=== PATIENT | male | born 1995 | race Caucasian/White ===

== ENCOUNTER 2017-02-24 00:51 | Emergency (ER) | payer BC, OTHER ==
[~2017-02-24] VITALS: Ht 180.3 cm; Wt 80.0 kg
[~2017-02-24 00:51] MED LIST: CETI10CH PO; GUMMY VITAMIN PO
[2017-02-24 01:00] VITALS: TEMP 36.7; Ht 180.3 cm; Wt 80.0 kg
[2017-02-24] MEDS ORDERED: IBUPROFEN 600 MG TAB PO STA (01:07)
[2017-02-24] MEDS ORDERED: MULT-506 PO (01:28)
[2017-02-24 02:00] VITALS: BP 100/72; PULSE 68; O2SAT 99
--- NOTE | 2017-02-24 02:16 | EMERGENCY ROOM VISIT NOTE ---
ED Visit Note First contact with patient: 01:05 CHIEF COMPLAINT: Hand injury HISTORY OF PRESENT ILLNESS: This 21 yo patient presented to the emergency department with family after they injured the right hand after punching a wall today. The patient rates the pain as throbbing and 5/10. The patient denies any numbness or tingling. The patient does not have injuries to the wrist. The patient has not had a previous fracture to this hand. Patient follows with Dr. Radford. REVIEW OF SYSTEMS: A 6 system review of systems was completed with positives and pertinent negatives in the HPI. ALLERGIES: None MEDICATIONS: None PMH: Orthopedic injuries SOCIAL HISTORY: No drug use PHYSICAL EXAM: Vital Signs: Reviewed Nurse's notes, vital signs stable. GENERAL : Pleasant male, in no acute distress, but appears to be in pain, well-developed , well-nourished. MUSCULOSKELETAL: There is deformity of the right hand. There is tenderness in the metacarpal. There is no thenar or hypothenar eminence atrophy. Normal thumb opposition to all fingers. Quality Checker strength 4/5. There is no laceration. Capillary refill less than 2 seconds. No tenderness of the fingers or wrist. Full range of motion of the wrist. No snuff box tenderness. Radial pulse 2+. NEURO: Alert and oriented to person, place, and time. Normal sensation to light and sharp touch. EMERGENCY DEPARTMENT COURSE: I examined the patient. An x-ray of the right hand was reviewed by myself and attending and shows angulated boxer's fracture. Patient was placed in a ulnar gutter Ortho-Glass splint and neurovascular status was rechecked after placement and is intact. Mother states that she is good friends with Dr. Radford and will contact them in the morning. She states she will follow up with them on Friday for definitive care for that hand fracture. They're advised to return to the ER immediately for severe pain, numbness, tingling, worsening signs or symptoms or as needed. The patient was discharged home in good condition. DIAGNOSIS: Right boxer's fracture hand DISCHARGE INSTRUCTIONS: As below case reviewed with my Attending Current/Historical Medications Scheduled Multivitamin (Multivitamin), 1 TAB PO DAILY Allergies Coded Allergies: No Known Allergies (Unverified , 02/24/17) Vital Signs Date Time Temp Pulse Resp B/P (MAP) Pulse Ox O2 Delivery O2 Flow Rate FiO2 02/24/17 02:00 68 18 100/72 99 02/24/17 01:00 36.7 67 18 100/64 100 Room Air Medications Administered Medications (Trade) Dose Ordered Sig/Lee Route Start Time Stop Time Status Last Admin Dose Admin Ibuprofen (Motrin Tab) 600 mg NOW STAT PO 02/24/17 01:07 02/24/17 01:09 DC 02/24/17 01:13 600 MG Departure Information Impression Primary Impression: Hand fracture, right Dispostion Home / Self-Care Condition GOOD Referrals Rk Christie, DO Forms HOME CARE DOCUMENTATION FORM, IMPORTANT VISIT INFORMATION Patient Instructions My [facility], ED Fx Hand Closed Additional Instructions Ibuprofen(Motrin, Advil) may be used for fever or pain. Use 600mg every six hours as needed. Take with food. Avoid using more than 2400mg in a 24 hour period. Do not use 2400mg per day for more than three consecutive days without physician direction. Prolonged inappropriate use can lead to stomach upset or ulcers. This medication can be taken if you need to drive, work, or perform activities which may be dangerous when taking narcotic pain medication. (AND/OR) Acetaminophen(Tylenol) may be used for fever or pain. Use 1000mg every six hours as needed. Avoid using more than 3000mg in a 24 hour period. This medication can be taken if you need to drive, work, or perform activities which may be dangerous when taking narcotic pain medication. Ice compresses for 20 minutes at a time four times daily for 2-3 days. Rest and elevate your injury. Do not get the splint wet. If your splint feels excessively tight, you have worsening pain, develop numbness or tingling, or your digits appear blue, loosen the radhames wrap. Then reapply the radhames wrap gently without removing the splint. If your symptoms are not quickly relieved return to the ER for re- evaluation. Continue current medications. Return to the ER immediately for any numbness, tingling, severe pain, extreme swelling in the extremity or as needed. Call Orthopedics tomorrow to arrange follow up for your injury.
--- NOTE | 2017-02-24 06:38 | DIAGNOSTIC IMAGING REPORT ---
RIGHT HAND MIN 3 VIEWS ROUTINE HISTORY: 21 years-old Male punched wall, 5th pain Right acute right hand pain status post punching a wall. Initial exam. COMPARISON: Right wrist radiographs 01/15/2013. TECHNIQUE: 3 views of the right hand FINDINGS: There is an acute mildly comminuted fracture of the distal diaphyseal fifth metacarpal with apex dorsal angulation of 80 degrees. Moderate associated soft tissue swelling. Sclerosis corresponding with remote fracture of the triquetrum is seen. No additional acute displaced fracture or dislocation. IMPRESSION: Acute mildly comminuted angulated fracture of the distal diaphyseal fifth metacarpal. The above report was generated using voice recognition software. It may contain grammatical, syntax or spelling errors. Electronically signed by: Tod Atkins M.D. 02/24/2017 6:37 AM Dictated Date/Time: 02/24/2017 6:35 AM
[2017-02-26] MEDS ORDERED: ACET-1256 PO (11:41)
[2017-02-27] MEDS ORDERED: HYDR-5688 PO (12:07)
== END 2017-02-24 02:00 | disposition home or self-care (01) ==
LOC: C.EDB 00:52 → C.EDC 02:00
DX: S62.396A Other fracture of fifth metacarpal bone, right hand, initial encounter for closed fracture (principal); W22.09XA Striking against other stationary object, initial encounter; Y93.89 Activity, other specified; Y99.8 Other external cause status

== ENCOUNTER → 2017-02-27 | Day surgery (SDC) | payer BC ==
[2017-02-26 11:42] VITALS: Ht 180.3 cm; Wt 79.5 kg
[~2017-02-27] VITALS: Ht 180.3 cm; Wt 79.5 kg
[~2017-02-27] MED LIST changes: +ACET-1256 PO; +ATROPINE SULFATE 0.1 MG/ML 5ML SYR IV PRN; +BUPIVACAINE 0.5 % 5 MG/1 ML MPF 30ML VIAL ONE; +CEFAZOLIN 2000 MG/60 ML D5W IV SCH; -CETI10CH PO; +DEXAMETHASONE SOD INJ 4 MG/ML VIAL ONE; +EpHEDrine SULFATE INJ 50 MG/ML AMP IV PRN; +FENTANYL CITRATE INJ 50 MCG/1 ML 2 ML VIAL IV PRN; +FENTANYL CITRATE INJ 50 MCG/1 ML 2 ML VIAL ONE; -GUMMY VITAMIN PO; +HYDR-5688 PO; +HYDROCODONE/ACETAMOPHEN 5/325MG TAB PO PRN; +KETOROLAC TROMETHAMINE 30 MG/ML VIAL ONE; +LACTATED RINGER'S 1000ML 1,000 ML IV SCH; +LIDOCAINE HCL 1% 20 ML VIAL ONE; +LIDOCAINE HCL 2% 2 ML VIAL (20MG/ML) ONE; +MIDAZOLAM HCL 1 MG/ML 2ML VIAL ONE; +MULT-506 PO; +ONDANSETRON INJ 2 MG/ML 2 ML VIAL IV PRN; +ONDANSETRON INJ 2 MG/ML 2 ML VIAL ONE; +PROPOFOL IV EMULSION 10 MG/ML 20 ML VIAL IV ONE; +SODIUM CHLORIDE 0.9% 1000ML 1,000 ML IV SCH
--- NOTE | 2017-02-27 08:01 | History & Physical Bridge - [place] ---
H&P Re-Evaluation Bridge Note: I have examined the patient, reviewed the History & Physical and in the interval since the performance of the History & Physical I have noted the following changes of clinical significance: No changes noted
--- NOTE | 2017-02-27 12:08 | Discharge Instructions-SurgCtr ---
Discharge Instructions Date of Service Feb 27, 2017. Visit Reason for Visit: Closed Fx Of Neck Of 5TH Metacarpal Bone Discharge Discharge Diagnosis / Problem: SAME ABOVE Discharge Goals Goal(s): Decrease discomfort, Improve function Activity Recommendations Activity Limitations: as noted below Exercise/Sports Limitations: until after follow-up appointment Driving or Machine Use: resume 1 day after discharge Anesthesia . Post Anesthesia Instructions: If you have had General Anesthesia or IV Sedation: * Do not drive today. * Resume driving when surgeon permits. * Do not make important decisions or sign legal documents today. * Call surgeon for: 1. Temperature elevations greater than 101 degrees F. 2. Uncontrollable pain. 3. Excessive bleeding. 4. Persistent nausea and vomiting. 5. Medication intolerance (nausea, vomiting or rash). * For nausea and vomiting use only clear liquids such as: tea, soda, bouillon until nausea subsides, then gradually increase diet as tolerated. * If you have any concerns or questions, call your surgeon's office. If physician is unavailable and it is an emergency, call 911 or go to the nearest emergency room. . Instructions / Follow-Up Instructions / Follow-Up MEDICATIONS: * Resume previous medications unless instructed otherwise by your surgeon. * Always take pain medication on a full stomach or with food to avoid upset stomach. * Do not drink alcohol or drive while taking narcotics. * Ibuprofen or Tylenol may be taken if narcotic not needed. SPECIAL CARE INSTRUCTIONS: __ None _X_ Keep extremity elevated and iced x 48 hours; apply ice 20-30 minutes 8-10 times/day. May remove at night. __ Sling __24 hrs/day __ Remove at night __ Shoulder Immobilizer __ 24 hrs/day __ Remove at night _X_ Dressing _X_ Maintain until seen in office, may shower with plastic over site __ Remove dressings in 24-48 hours and then may shower __ Cover incisions with band-aids after showering __ Do not remove steri-strips Call physician if chills or temperature rises above 102 degrees or pain unrelieved by prescribed pain medications at . . Diet Recommendations Home Diet: no limitations Fluid Restriction: None Procedures Procedures Performed: Right 5th Metacarpal Fracture Closed Reduction K Wire Fixation Pending Studies Studies pending at discharge: no School Instructions Return To School: time frame (WHEN PAIN IS TOLERATED ) Medical Emergencies . Who to Call and When: Medical Emergencies: If at any time you feel your situation is an emergency, please call 911 immediately. . Non-Emergent Contact Non-Emergency issues call your: Primary Care Provider Call Non-Emergent contact if: you have a fever, temperature is above 101.5 . . "Provider Documentation" section prepared by Gregory Devine. .
--- NOTE | 2017-02-27 12:28 | OPERATIVE REPORT ---
DATE OF OPERATION: 02/27/2017 PREOPERATIVE DIAGNOSIS: Right fifth metacarpal fracture. POSTOPERATIVE DIAGNOSIS: Same. PROCEDURE: Percutaneous pinning of right fifth metacarpal. SURGEON: Dr. Rk Christie. TEST CONSULTANT: Moshe Devine PA-C, whose assistance was necessary for positioning the arm and holding reduction. ANESTHESIA: General. COMPLICATIONS: None. CONDITION: Stable to PACU. INDICATIONS: Jethro is a 21-year-old male who punched a wall over the weekend. He sustained an angulated boxer's fracture. The angulation was around 70 degrees. 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 His parents were concerned and they elected to proceed with percutaneous pinning. DESCRIPTION OF PROCEDURE: On 02/27/2017, he arrived at [facility] for the above procedure. He was seen in the preoperative holding area and the operative extremity was identified and signed. He was given a preoperative antibiotic and taken back to the operating room, laid on the table in supine position and put under general anesthesia. The right hand was then prepped and draped in sterile fashion. Time-out was done and the patient and operative extremity was properly identified. C-arm was brought in. Reduction was easily obtained. A pin was placed from the distal aspect of the fifth metacarpal to the fourth metacarpal to hold the metacarpal out to length. With attempts to place another pin from the tip to the fourth metacarpal, the fragment kept translating radially. This would cause the small finger to deviate. I decided then to place a pin across the fracture site. This was held in better reduction. The small finger was not deviated. The wires were cut and he was placed in an ulnar gutter splint. He was then extubated, transferred to a [facility] and taken to the postanesthesia care unit in stable condition. He tolerated the procedure well. I attest to the content of the Intraoperative Record and any orders documented therein. Any exceptions are noted below. KAIT
[2017-02-27 13:00] VITALS: TEMP 36.5
[2017-02-27 13:20] VITALS: BP 109/67; PULSE 55; O2SAT 99
--- NOTE | 2017-02-27 13:31 | Anesthesia Progress Nt - [facility] ---
Anesthesia Post Op Note Date & Time Feb 27, 2017 at 13:31 Vital Signs Pain Intensity: 0 Vital Signs Past 12 Hours Date Time Temp Pulse Resp B/P (MAP) Pulse Ox O2 Delivery O2 Flow Rate FiO2 02/27/17 13:20 55 16 109/67 (81) 99 Room Air 02/27/17 13:00 36.5 54 16 120/74 (89) 100 Room Air 02/27/17 12:52 58 16 100 02/27/17 12:52 58 16 02/27/17 12:51 119/66 02/27/17 12:51 36.7 58 16 119/66 99 Room Air 02/27/17 12:47 59 16 100 02/27/17 12:47 60 16 02/27/17 12:46 117/65 02/27/17 12:42 58 14 02/27/17 12:42 57 14 99 02/27/17 12:41 120/65 02/27/17 12:37 61 17 02/27/17 12:37 60 17 99 02/27/17 12:36 123/71 02/27/17 12:32 60 13 02/27/17 12:32 63 13 100 02/27/17 12:31 126/77 02/27/17 12:27 64 14 100 02/27/17 12:27 63 14 02/27/17 12:26 129/71 02/27/17 12:22 64 13 02/27/17 12:22 67 13 100 02/27/17 12:21 123/78 02/27/17 12:17 67 22 100 02/27/17 12:17 68 22 02/27/17 12:16 70 13 02/27/17 12:16 69 13 127/62 100 02/27/17 12:11 64 11 02/27/17 12:11 64 11 103/76 02/27/17 12:06 53 02/27/17 12:06 53 100 02/27/17 12:06 36.6 70 14 118/55 100 Mask 6 02/27/17 09:22 37.1 57 22 122/73 (89) 100 Room Air Notes Mental Status: alert / awake / arousable, participated in evaluation Pt Amnestic to Procedure: Yes Nausea / Vomiting: adequately controlled Pain: adequately controlled Airway Patency, RR, SpO2: stable & adequate BP & HR: stable & adequate Hydration State: stable & adequate Anesthetic Complications: no major complications apparent
--- NOTE | 2017-02-27 15:41 | [facility] Post Operative Brief Note ---
Immediate Operative Summary Operative Date Feb 27, 2017. Pre-Operative Diagnosis Displaced 5th metacarpal fracture, right hand Post-Operative Diagnosis same as preop Procedure(s) Performed Right 5th Metacarpal Fracture Closed Reduction K Wire Fixation Surgeon Dr. Christie Ore Dressing Engineer Surgeon(s) CRISTY Oglesby Estimated Blood Loss 5ML Findings as above Specimens none Complication(s) None Disposition Recovery Room / PACU
--- NOTE | 2017-02-28 08:09 | DIAGNOSTIC IMAGING REPORT ---
INTRAOPERATIVE RADIOGRAPH CLINICAL HISTORY: Open reduction and internal fixation of a fifth metacarpal fracture. Fluoroscopy time: 196 seconds. FINDINGS: A single spot fluoroscopic image of the right hand is correlated with radiographs of the right hand dated 02/24/2017. A pin transfixes a minimally distracted fracture through the distal shaft of the fifth metacarpal. A second pin transfixes the fourth and fifth metacarpal heads. Overlying soft tissue edema is noted. IMPRESSION: Intraoperative image from open reduction and internal fixation of a right fifth metacarpal fracture. Electronically signed by: Nikita Santiago M.D. 02/27/2017 12:27 PM Dictated Date/Time: 02/27/2017 12:25 PM
== END | disposition home or self-care (01) ==
LOC: X.SURG 09:04
PROVIDERS: ATTEND Orthopaedic Surgery
DX: S62.396A Other fracture of fifth metacarpal bone, right hand, initial encounter for closed fracture (principal); W22.8XXA Striking against or struck by other objects, initial encounter

== ENCOUNTER → 2018-01-27 | Day surgery (SDC) | payer OTHER ==
[2017-12-23 11:02] VITALS: Ht 180.3 cm; Wt 83.6 kg
[~2018-01-27] VITALS: Ht 180.3 cm; Wt 83.6 kg
[~2018-01-27] MED LIST changes: -ACET-1256 PO; -BUPIVACAINE 0.5 % 5 MG/1 ML MPF 30ML VIAL ONE; -CEFAZOLIN 2000 MG/60 ML D5W IV SCH; +CEFAZOLIN 2000MG IV PUSH 15 ML IV SCH; +CEFTRIAXONE SOD 1 GM VIAL ONE; +CEFTRIAXONE SOD 2 GM VIAL IV ONE; +CETI10TA84 PO; +EpHEDrine SULFATE 50MG/5ML SYR ONE; +EpINEphrine HCL INJ 1 MG/ML 1ML SYRINGE ONE; +EpINEphrine INJ 1MG/ML AMP 1 MG/ML AMP ONE; +FLUMAZENIL 0.1 MG/1 ML 10 ML VIAL IV PRN; -HYDR-5688 PO; -HYDROCODONE/ACETAMOPHEN 5/325MG TAB PO PRN; +HYDROmorphone INJ 0.5 MG/0.5 ML SYR IV PRN; -KETOROLAC TROMETHAMINE 30 MG/ML VIAL ONE; +LABETALOL HCL IV 5 MG/ML 20ML IV PRN; -LIDOCAINE HCL 1% 20 ML VIAL ONE; +MEPERIDINE HCL 25 MG/ML CARP IV PRN; +NALOXONE HCL 0.4 MG/1 ML VIAL/CARP IV PRN; +OXYCODONE/ACETAMINOPHEN 5-325 TAB PO PRN; +PHENYLEPHRINE 100MCG/ML 5ML SYR IV PRN; -PROPOFOL IV EMULSION 10 MG/ML 20 ML VIAL IV ONE; +PROPOFOL IV EMULSION 10 MG/ML 20 ML VIAL ONE; +ROPIVACAINE 0.5% 5 MG/ML 30 ML VIAL ONE
--- NOTE | 2018-01-27 06:47 | History & Physical Bridge Note ---
H&P Re-Evaluation Bridge Note: I have examined the patient, reviewed the History & Physical and in the interval since the performance of the History & Physical I have noted the following changes of clinical significance:consent obtained. No changes noted
--- NOTE | 2018-01-27 06:48 | Discharge Instructions ---
Discharge Instructions Date of Service Jan 27, 2018. Visit Reason for Visit: Right Shoulder Labral Tear Discharge Discharge Diagnosis / Problem: same Discharge Goals Goal(s): Decrease discomfort, Improve function, Increase independence Medications Stopped Medications Name(s): na Restart Stopped Medication(s): use scripts as directed. Activity Recommendations Activity Limitations: as noted below Lifting Limitations: until after follow-up appointment Exercise/Sports Limitations: until after follow-up appointment May Resume Sexual Activity: after follow-up appointment Shower/Bathe: keep incision dry Driving or Machine Use: Anesthesia . Post Anesthesia Instructions: If you have had General Anesthesia or IV Sedation: * Do not drive today. * Resume driving when surgeon permits. * Do not make important decisions or sign legal documents today. * Call surgeon for: 1. Temperature elevations greater than 101 degrees F. 2. Uncontrollable pain. 3. Excessive bleeding. 4. Persistent nausea and vomiting. 5. Medication intolerance (nausea, vomiting or rash). * For nausea and vomiting use only clear liquids such as: tea, soda, bouillon until nausea subsides, then gradually increase diet as tolerated. * If you have any concerns or questions, call your surgeon's office. If physician is unavailable and it is an emergency, call 911 or go to the nearest emergency room. . Instructions / Follow-Up Instructions / Follow-Up The following are instructions to follow after "Shoulder Surgery" including, Acromioplasty, Rotator Cuff Repair and Instability Surgery ACTIVITY RECOMMENDATIONS: * Minimize activity after surgery. * No excessive walking, jogging, sports or laboring. * Return to activity is individualized depending on the patient and type of surgery. * Driving is not permitted until at least your first post operative visit. Please ask your doctor when it is safe to resume driving. * Expect increased discomfort with increased activity. Continue to ice the shoulder as needed. SCHOOL/WORK RECOMMENDATIONS: * You may return to sedentary work or school when you are feeling more comfortable. This is usually 3-7 days after surgery. MEDICATIONS: * You will have a prescription for pain medication and an anti-inflammatory medication after surgery. * Use the pain medication for severe pain and the anti-inflammatory for less severe pain. Once the pain medication has run out, try to use the anti-inflammatory medication. If this is not effective, contact the office for assistance. * The pain medication may cause nausea, constipation and drowsiness. You should see how they affect you before driving or similar activity. * The anti-inflammatory medication may cause stomach upset and bleeding. If this occurs let your doctor know immediately . * Take a stool softener like Colace or a laxative like Senokot to prevent constipation. DIET: * Resume previous diet. SPECIAL CARE: ICE: You have the option of an ice cooler, gel packs or ice bags. * If you have an ice cooler, refer to the instructions for that device. The ice cooler may be used continuously. * If you do not have an ice cooler, you will need to use ice bags or gel packs. Do not apply ice directly to the skin. Use a thin dressing or rosalio shirt between the skin and ice bag. Apply ice for 20-30 minutes and repeat every 2-4 hours. This is especially important for the first 7-10 days after surgery. Once the pain improves, use ice as needed. ELEVATION: * You may be more comfortable sleeping in an upright position. Use the sling to elevate your arm. DRESSING: * Your dressing will be changed at your first therapy appointment approximately 4-5 days after surgery. Band-aids, tape strips or gauze may be applied. You may then change your dressing daily. * Reapply dressing followed by the EBIce cooling pad (if chosen) and then the sling. * Always wash your hands prior to touching the incision area. * Once the stitches are removed, you may leave the wound open to air or cover with gauze. * Expect some bloody drainage for the first few days after surgery. * Leave the tape strips, if present, in place for 5-7 days. * Band-aids and gauze may be changed daily. * There may be a gauze pad in your armpit area. This can be changed daily or replaced by a dry washcloth. SLING/BRACE: * You will need to use a sling or brace after surgery. The length of time the sling is used is dependent upon the type of surgery performed. * Arthroscopic Acromioplasty requires use of the sling for 2-4 weeks for comfort. * Labral procedures and Rotator Cuff Repairs require use of the sling for a longer period of time. Please check with your doctor prior to discontinuing the sling. BATHING: * You may shower or sponge-bathe immediately after surgery. The post operative shoulder dressing is mostly water-tight. You may shower right over this dressing, but be reasonably careful not to get the gauze or incision wet. * Once the dressing has been changed on the fourth or fifth day after surgery, you may shower and get the incision wet. * Wash with regular soap and water. * Do not bathe (submerge the incision), soak, swim or use a hot tub until the incision is completely healed over with normal skin and the doctor has given the OK to proceed. * There is no need to apply any ointments, powders or salves to your incision. * Do not apply alcohol or hydrogen peroxide directly to the incision. * Diluted peroxide (50:50 mixture with sterile saline) may be used to clean dried blood from around the incision area. THERAPY: * You will begin therapy four or five days after surgery. * Organized therapy with the therapist is important for the first 2-4 months after surgery depending on the type of procedure. During that time you will attend therapy 1-3 times per week. * You will also need to do daily exercises for range of motion and strength as instructed. * Patients who have a Capsular Shift Procedure will need to abide by temporary range of motion limitations. * Patients having Rotator Cuff Surgery are not allowed to actively lift their arms until 4-6 weeks after surgery. * Please check with your doctor regarding appropriate motion restrictions. FOLLOW UP VISIT: * If not already scheduled, please call the office at to schedule a follow-up appointment for 10 days after surgery and monthly thereafter. Diet Recommendations Recommended Home Diet: resume previous diet Procedures Procedures Performed: see op note Pending Studies Studies pending at discharge: no Medical Emergencies . Who to Call and When: Medical Emergencies: If at any time you feel your situation is an emergency, please call 911 immediately. . Non-Emergent Contact Non-Emergency issues call your: Specialist Call Non-Emergent contact if: temperature is above 101.5, wound has increased drainage, wound has increased redness, wound has increased pain . . "Provider Documentation" section prepared by Jay Edwards. .
--- NOTE | 2018-01-27 09:30 | [facility] Post Operative Brief Note ---
Immediate Operative Summary Operative Date Jan 27, 2018. Pre-Operative Diagnosis Right shoulder labral tear Post-Operative Diagnosis Same as preop Procedure(s) Performed anterior and posterior labral repair Surgeon Dr. Edwards Electronic Funds Transfer Coordinator Surgeon(s) Carlos Alberto Finn PA-C Estimated Blood Loss trace Findings Consistent with Post-Op Diagnosis Fluids (cc crystalloids) 1000cc Specimens None Drains None Anesthesia Type General Regional Complication(s) none Disposition Accompanied Pt To Recover: no Overlapping Procedure I was immediately available: during the entire case
--- NOTE | 2018-01-27 09:53 | [facility] Operative Report ---
Operative Report Operative Date Jan 27, 2018. Pre-Operative Diagnosis Right shoulder labral tear Post-Operative Diagnosis Right shoulder same as preop Procedure(s) Performed Right shoulder anterior and posterior labral repair Surgeon Dr. Edwards Trailer Park Manager Surgeon(s) Carlos Alberto Finn PA-C Estimated Blood Loss trace Findings Anterior and posterior labral tear right shoulder Fluids 1000cc Specimens None Drains None Anesthesia Type General Regional Complication(s) none Disposition no Indications This 22-year-old white male presented to the office with complaints of right shoulder discomfort and instability. He had tried conservative care measures including activity modification and physical therapy without improvement. Patient elected to proceed with surgical intervention after being educated about potential risks and outcomes. Preoperative imaging was obtained. Description of Procedure Patient was administered a regional block and then taken to the operating room where he was given general anesthesia. He was prepped and draped in usual sterile fashion. Please see Dr. Edwards's operative report for specifics of the procedure. I was present for the entire case, from initial patient positioning through final wound closure. Assistance was provided in patient positioning, arthroscopy, hardware placement, and final wound closure. Patient was taken to the recovery room in satisfactory condition. I attest to the content of the Intraoperative Record and any orders documented therein. Any exceptions are noted below.
--- NOTE | 2018-01-27 09:54 | Anesthesia Progress Nt - [facility] ---
Anesthesia Post Op Note Date & Time Jan 27, 2018 at 09:54 Vital Signs Pain Intensity: 0 Vital Signs Past 12 Hours Date Time Temp Pulse Resp B/P (MAP) Pulse Ox O2 Delivery O2 Flow Rate FiO2 01/27/18 07:36 124/65 01/27/18 07:34 65 15 99 01/27/18 07:34 66 01/27/18 07:33 70 30 99 01/27/18 07:33 70 01/27/18 07:31 112/54 01/27/18 07:28 70 01/27/18 07:28 71 35 100 01/27/18 07:27 66 01/27/18 07:27 64 18 100 01/27/18 07:26 105/44 01/27/18 07:22 70 01/27/18 07:22 71 22 100 01/27/18 07:21 126/72 01/27/18 07:19 63 01/27/18 07:19 59 15 100 01/27/18 07:16 119/67 01/27/18 07:15 124/67 01/27/18 07:14 68 01/27/18 07:14 68 0 99 01/27/18 07:09 58 01/27/18 07:09 55 0 98 01/27/18 07:04 63 01/27/18 07:04 64 0 98 01/27/18 06:59 63 0 99 01/27/18 06:59 65 01/27/18 06:54 0 01/27/18 06:32 36.7 62 16 115/60 (78) 97 Room Air Notes Mental Status: alert / awake / arousable, participated in evaluation Pt Amnestic to Procedure: Yes Nausea / Vomiting: adequately controlled Pain: adequately controlled Airway Patency, RR, SpO2: stable & adequate BP & HR: stable & adequate Hydration State: stable & adequate Anesthetic Complications: no major complications apparent
--- NOTE | 2018-01-27 10:08 | OPERATIVE REPORT ---
DATE OF OPERATION: 01/27/2018 SURGEON: Jay Edwards MD TUBE CARRIER: Carlos Alberto Finn PA-C. No resident or fellow available. PREOPERATIVE DIAGNOSIS: Labral tear, right shoulder with instability. POSTOPERATIVE DIAGNOSES: Anterior and posterior inferior labral tear with anterior instability with dislocatability with EUA. OPERATION PERFORMED: 1. Exam under anesthesia. 2. Diagnostic arthroscopy. 3. Anterior and posterior labral repair. PERIOPERATIVE SITUATION: Medically cleared male with intractable shoulder pain, has difficulty doing any type of throwing activity. Believes that the shoulder gives way and gets a little bit of arm syndrome. Physical exam, x-ray and MRI scan consistent with labral disease. Options were discussed including nonoperative management, the patient wished to proceed with surgery knowing that it could not cure all of his symptoms guaranteed. DESCRIPTION OF PROCEDURE: Patient appropriately identified, site verified, consent verified. Antibiotics confirmed as being given. The shoulder was examined revealing dislocatability anterior and anterior inferior to the right shoulder. There was no major posterior instability. The arm was then prepped and draped in usual routine fashion with the patient in the left lateral decubitus position. Care taken to not put too much traction on the arm. A posterior portal then made 2 cm medial and inferior to posterolateral tip of the acromion joint entered without difficulty. Two anterior portals were then made, one off the edge of the AC joint and one just off the edge of the subscap with needle localization. Medially encountered was the inferior anterior labral disease and posterior inferior labral disease. This was all mobilized and debrided. An accessory posterior portal was then made and all 4 cannulas were placed. Once the labrum was mobilized then the tattered area was debrided and the neck of the glenoid cleaned of any soft tissue down to raw bone, 4 anchors were then placed. They were 2.9 anchors. The posterior anchor was placed first, then 2 anterior anchors and then an additional posterior anchor. This allowed excellent repair of the capsule labral junction back to the anterior neck of the glenoid and decreased the glenoid drive-through sign significantly. Once this was viewed from both anterior and posterior, the procedure was terminated. Estimated blood loss was trace. Crystalloid was 1000 mL. The 4 portals were then closed with 3-0 nylon, dressed with Xeroform, 4 x 4 gauze, ABD pads and Ioban dressing. Labral capsule labral tissue was relatively healthy anteriorly and the most inferior aspect of the posterior side. The most superior aspect of posterior side had some significant degeneration. Three labral tapes were used for the 2 anterior anchors and the most inferior posterior anchor and then the superior posterior anchor had a fiber loop. All anchors were 2.9 peek. No DVT prophylaxis required. I attest to the content of the Intraoperative Record and any orders documented therein. Any exceptions are noted below. MTDD
[2018-01-27 10:16] VITALS: TEMP 36.5
[2018-01-27 10:54] VITALS: BP 113/60; PULSE 73; O2SAT 99
== END | disposition home or self-care (01) ==
LOC: X.SURG 06:21
PROVIDERS: ATTEND Physical Medicine & Rehabilitation Sports Medicine
DX: S43.491A Other sprain of right shoulder joint, initial encounter (principal); M25.311 Other instability, right shoulder; X58.XXXA Exposure to other specified factors, initial encounter